=== PATIENT | female | born 1995 | race Caucasian/White ===

== ENCOUNTER 2017-03-28 03:42 | Inpatient (IN) | payer MEDICAID, OTHER ==
[~2017-03-28] VITALS: Ht 165.1 cm; Wt 85.1 kg
[2017-03-28 04:18] VITALS: Ht 165.1 cm; Wt 85.1 kg
[2017-03-28 04:19] VITALS: BP 120/69; PULSE 75; RESP 18
[2017-03-28] MEDS ORDERED: LACTATED RINGER'S 1,000 ML IV SCH (04:20)
[2017-03-28] MEDS ORDERED: CARBOPROST 250 MCG INJ IM PRN ×2 (04:30→17:00)
[2017-03-28] MEDS ORDERED: LIDOCAINE 1% (MPF) 30 ML INJ INJ PRN (04:30)
[2017-03-28] MEDS ORDERED: OXYTOCIN 30 UNITS/LR 500 ML IV SCH (04:30)
[2017-03-28] MEDS ORDERED: MISOPROSTOL 200 MCG TAB PR PRN ×2 (04:30→17:00)
[2017-03-28] MEDS ORDERED: LACTATED RINGER'S 1,000 ML IV PRN (04:30)
[2017-03-28] MEDS ORDERED: OXYTOCIN 30 UNITS/LR 500 ML IV PRN ×2 (04:30→17:00)
[2017-03-28] MEDS ORDERED: METHYLERGONOVINE 0.2 MG INJ IM PRN ×2 (04:30→17:00)
[2017-03-28] MEDS ORDERED: AMPICILLIN 2 GM/NS (PMX) 100 ML IV ONE (04:30)
[2017-03-28] MEDS ORDERED: IBUPROFEN 600 MG TAB PO PRN (04:30)
[2017-03-28 05:33] LABS: BASOPHIL # 0.1 10^3/ul (0.0-0.1); BASOPHILS % 0.5 % (0.0-2.0); EOSINOPHILS # 0.1 10^3/ul (0.0-0.5); EOSINOPHILS % 0.6 % (0.0-7.0); HEMOGLOBIN 10.1 g/dl (12.0-16.0); LYMPHOCYTES # 3.8 10^3/ul (0.8-2.9); LYMPHOCYTES % 31.5 % (15.0-51.0); MEAN CORPUSCULAR HEMOGLOBIN 26.1 pg (29.0-33.0); MEAN CORPUSCULAR HGB CONC 32.6 g/dl (32.0-37.0); MEAN CORPUSCULAR VOLUME 80.1 fl (82.0-101.0); MEAN PLATELET VOLUME 11.8 fl (7.4-10.4); MONOCYTES % 8.1 % (0.0-11.0); NEUTROPHIL # 7.1 10^3/ul (1.6-7.5); NEUTROPHILS % 58.8 % (39.0-77.0); PLATELET COUNT 263 10^3/UL (140-415); RED BLOOD COUNT 3.87 10^6/ul (4.20-5.40); RED CELL DISTRIBUTION WIDTH 14.1 % (11.5-14.5); WHITE BLOOD COUNT 12.1 10^3/ul (4.8-10.8)
[2017-03-28 05:43] LABS: INR 1.03; PROTIME 13.5 Sec (12.2-14.2); PT RATIO 1.1
[2017-03-28 05:44] LABS: PARTIAL THROMBOPLASTIN TIME 31.3 Sec (25.0-35.0)
[2017-03-28] MEDS: BUTORPHANOL 2 MG INJ IV PRN ×2 (06:25→08:53)
[2017-03-28] MEDS ORDERED: MINERAL OIL LIGHT 10 ML VIAL TOP ONE (08:00)
[2017-03-28] MEDS ORDERED: AMPICILLIN 1 GM/NS (PMX) 50 ML IV SCH (08:30)
[2017-03-28] MEDS: OXYTOCIN 30 UNITS/LR 500 ML IV SCH ×2 (08:53→14:04)
--- NOTE | 2017-03-28 09:09 | TRIAGE ---
OB Triage Datetime Report Generated by CPN: 03/28/2017 08:03 Datetime: 03/28/2017 07:00 Maternal Assessment Level of Consciousness: Fully Conscious DTR's/Clonus: DTRs 1+ Headache: Denies Blurred Vision: No Respiratory Effort: Unlabored Breath Sounds, Left: Clear and Equal Breath Sounds, Right: Clear and Equal Nausea/Vomiting: Denies RUQ Epigastric Pain: Denies Facial Edema: None Labor Evaluation Frequency: 4-7 Monitor Mode: External Duration (sec)2399: 30-40 Quality: Mild Pattern: Normal: <= 5 Contractions in 10 Minutes Resting Tone [place]: Relaxed Heart Rate FHR Baseline Rate: 125 Monitor Mode: External US Variability: Moderate 6-25 bpm Accelerations: 15X15 Decelerations: None Category: Category I Pain Assessment Pain Scale: 3 Pain Presence: Intermittent Pain Type: Contraction Pain Location: Back Pain Goal: 3 Pain Relief Measures: Comfort Measures Membrane Status: Ruptured Datetime: 03/28/2017 06:30 Assessment Type: Admission Assessment Vaginal Bleeding: None Maternal Assessment Level of Consciousness: Fully Conscious DTR's/Clonus: DTRs 2+; No Clonus Headache: Denies Blurred Vision: No Respiratory Effort: Unlabored; Regular Rhythm; Equal Expansion Breath Sounds, Left: Clear and Equal Breath Sounds, Right: Clear and Equal Nausea/Vomiting: Denies RUQ Epigastric Pain: Denies Lower Extremities Edema: None Degree: None Upper Extremities Edema: None Degree: None Facial Edema: None Fall Risk Assessment History of Falling: (0) No Secondary Diagnosis: (0) No Ambulatory Aid: (0) Bedrest/Nurse Assist IV Therapy: (0) No Gait: (0) Normal/Bedrest/Immobile Mental Status: (0) Oriented to Own Ability Fall Score: 0 Fall Risk Score Definition: No Risk: No action required Labor Evaluation Frequency: unabale to see toco adjusted Heart Rate FHR Baseline Rate: 130 Variability: Moderate 6-25 bpm Accelerations: 15X15 Decelerations: None Category: Category I Pain Assessment Pain Scale: 7 Pain Presence: Intermittent Pain Type: Contraction Pain Location: Back Pain Goal: 3 Vaginal Exam Dilatation (cms): 7.5 Effacement (%): 90 Station: -2 Membrane Status: Ruptured Membranes Ruptured Date/Time: 03/28/2017 02:00 Membranes Rupture Method: Spontaneous Amniotic Fluid Color: Clear Amniotic Fluid Amount: Large Amniotic Fluid Odor: None Datetime: 03/28/2017 06:00 Stage of : Labor Labor Evaluation Frequency: 1-5 Monitor Mode: External Duration (sec)2399: 40-60 Quality: Moderate Pattern: Normal: <= 5 Contractions in 10 Minutes Resting Tone [place]: Relaxed Heart Rate FHR Baseline Rate: 135 Monitor Mode: External US FHR Baseline Changes: No Baseline Change Variability: Moderate 6-25 bpm Accelerations: 15X15 Decelerations: None Category: Category I Datetime: 03/28/2017 05:43 Vaginal Exam Dilatation (cms): 5.0 Effacement (%): 80 Station: -2 Exam By: gstratton rn Datetime: 03/28/2017 05:00 Labor Evaluation Frequency: 1.5-4 Monitor Mode: External Duration (sec)2399: 40-60 Quality: Moderate Pattern: Normal: <= 5 Contractions in 10 Minutes Resting Tone [place]: Relaxed Heart Rate FHR Baseline Rate: 135 Monitor Mode: External US Variability: Moderate 6-25 bpm Accelerations: 15X15 Decelerations: None Category: Category I Datetime: 03/28/2017 04:15 Time of Arrival: 03/28/2017 06:17 EGA: 38.3 Arrived By: Wheelchair Arrived From: TRIAGE Presentation 'A': Cephalic Datetime: 03/28/2017 04:14 Time of Arrival: 03/28/2017 03:35 Arrived By: Wheelchair Arrived From: Home Chief Complaint: SROM @0220 Movement: Present Contractions: Regular Time Contractions Began: 03/28/2017 02:20 Rupture of Membranes: Ruptured Vaginal Bleeding: None Vaginal Discharge: Present Recent Sexual Intercouse: Denies Abdominal Trauma: Not Applicable Patient Complaints: Contractions; Cramping; Back Pain Time Provider Notified: 03/28/2017 04:15 Provider Notified: Initial Plan: EFM x2, Nitrazine Datetime: 03/28/2017 04:03 Stage of : OB Triage Vaginal Exam Dilatation (cms): 4.0 Effacement (%): 60 Station: -3 Exam By: GUILLERMINA Sahni Membrane Status: Ruptured Nitrazine: Positive Datetime: 03/28/2017 04:00 Labor Evaluation Frequency: 1-3 Monitor Mode: External Duration (sec)2399: 40-60 Quality: Moderate Pattern: Normal: <= 5 Contractions in 10 Minutes Resting Tone [place]: Relaxed Heart Rate FHR Baseline Rate: 130 Monitor Mode: External US Variability: Minimal - Undetectable to <=5 bpm Category: Category II Datetime: 03/28/2017 03:59 Stage of : OB Triage Membranes Ruptured Date/Time: 03/28/2017 03:59 Membranes Rupture Method: Spontaneous Amniotic Fluid Color: Clear Amniotic Fluid Amount: Large Amniotic Fluid Odor: Normal Vaginal Bleeding: None Datetime: 03/28/2017 03:54 Stage of : OB Triage Assessment Type: Triage Maternal Assessment Level of Consciousness: Fully Conscious DTR's/Clonus: DTRs 2+; No Clonus Headache: Frontal Blurred Vision: No Respiratory Effort: Unlabored; Regular Rhythm; Equal Expansion Breath Sounds, Left: Clear and Equal Breath Sounds, Right: Clear and Equal Nausea/Vomiting: Denies RUQ Epigastric Pain: Denies Lower Extremities Edema: None Degree: None Upper Extremities Edema: None Degree: None Facial Edema: None Temperature Route: Oral Fall Risk Assessment History of Falling: (0) No Secondary Diagnosis: (0) No Ambulatory Aid: (0) Bedrest/Nurse Assist IV Therapy: (0) No Gait: (0) Normal/Bedrest/Immobile Mental Status: (0) Oriented to Own Ability Fall Score: 0 Fall Risk Score Definition: No Risk: No action required Pain Assessment Pain Scale: 7 Pain Presence: Intermittent Pain Type: Cramping; Contraction Pain Location: Abdomen; Back Pain Relief Measures: Comfort Measures
--- NOTE | 2017-03-28 09:35 | HP ---
Date/Time of Note Date/Time of Note DATE: 03/28/17 TIME: 09:32 OB - History Hx of Present Free Text/Dictation 22-year-old female 2 para 1 at 38+ weeks admitted complaining of onset of labor pain and ruptured membrane after 2:00 a.m. Last Menstrual Period: Jul 02, 2016 Estimated Due Date: Apr 08, 2017 : 2 Para: 1 Care: Good Care Ultrasounds: Normal mid trimester US Obstetrical Complications: None Medical Complications: None Past Family/Social History * Past Medical, Surgical, Family and Obstetric Histories reviewed from chart. Blood Type: A- Rubella: immune RPR/VDRL: Negative GBS Status: Unknown HBsAG: Negative OB Admission Exam Vital Signs Vital Signs Vital Signs Date Time Temp Pulse Resp B/P Pulse Ox O2 Delivery O2 Flow Rate FiO2 03/28/17 04:19 98.1 75 18 120/69 Room Air Physical Exam HEENT: WNL Heart: Rhythm Normal Lungs: Clear, Equal Abdomen: WNL Extremities: Normal Reflexes: Normal Cervical Dilatation: 4cm Effacement: 50% Station: -2 Amniotic Fluid: Clear Heart Rate: 140's Accelerations: Accelerations Present Decelerations: No Decelerations Varibility: Moderate Contractions on Admission: < 5 Minutes Apart Date/Time Contractions Began: March 28, 2017 2 AM Frequency of Contractions: Every 5 minutes Duration: Over 40 -60 seconds Intensity: Moderate Last 72 hours Lab Results CBC & BMP 03/28/17 04:48 OB Assessment/Plan Reason for admission: active labor Other Assessment: Term gestation Continuous rupture of membrane Other plan: Proceed with apparent delivery JONATHAN ULLOA MD Mar 28, 2017 09:35
--- NOTE | 2017-03-28 09:37 | LDN ---
Date/Time of Note Date/Time of Note DATE: 03/28/17 TIME: 09:35 Delivery Summary Normal spontaneous vaginal delivery of a viable over intact perineum Weeks of Gestation 38 Placenta Delivered: Spontaneously, Intact & Complete Meconium: none Episiotomy: No Perineal laceration: 2 Laceration repair: Second-degree perineal laceration was repaired in layers in normal fashion using 2-0 Vicryl and 2-0 chromic stitches 2 times small vestibular lacerations were closed using 4-0 chromic Anesthesia type: Local Estimated blood loss: 300 Sponge & Needle done & correct: Yes All needle counts correct: Yes Any foreign bodies felt in the: No Problems: Delivery Information Sex Sex: male Apgars 1 Minute: 9 5 Minute: 9 Suctioning Nose & mouth suctioned at lydia: Yes Delee suction performed: No Umbilical Cord Umbilical cord with: 3 Vessels Cord presentations: no nuchal cord Cord Blood was obtained: Yes Mother & Baby Disposition Disposition Mom & Baby to Maternity; Good: Yes (Mother and baby were recovered in good condition) Mom transferred to: Other (Maternity) Baby to NICU: No JONATHAN ULLOA MD Mar 28, 2017 09:37
[2017-03-28 12:50] VITALS: BP 110/69; PULSE 60; RESP 19
[2017-03-28 16:30] VITALS: BP 119/75; PULSE 58; RESP 17
[2017-03-28 16:39] VITALS: BP 118/69; PULSE 68; RESP 17
[2017-03-28] MEDS ORDERED: LACTATED RINGER'S 1,000 ML IV* SCH (16:49)
[2017-03-28] MEDS ORDERED: BENZOCAINE 20% 56 ML SPRAY TOP PRN (17:00)
[2017-03-28] MEDS ORDERED: LANOLIN 7 GM TUBE TOP PRN (17:00)
[2017-03-28] MEDS ORDERED: DIBUCAINE 1% 30 GM OINT PR PRN (17:00)
[2017-03-28] MEDS ORDERED: ZOLPIDEM 5 MG TAB PO PRN (17:00)
[2017-03-28] MEDS ORDERED: HYDROCODONE/APAP (5/325) TAB PO PRN ×2 (17:00)
[2017-03-28] MEDS: IBUPROFEN 600 MG TAB PO SCH ×2 (17:39→23:54)
[2017-03-28] MEDS: WITCH HAZEL/GLYCERIN PAD PR PRN (17:40)
[2017-03-28 21:00] VITALS: BP 106/65; RESP 20
[2017-03-28] MEDS: MAGNESIUM HYDROXIDE 30ML CUP PO SCH (21:00)
[2017-03-28] MEDS: SENNA/DOCUSATE NA (8.6MG/50MG) TAB PO SCH (21:51)
[2017-03-29 04:15] VITALS: BP 91/55; PULSE 71; RESP 18
[2017-03-29] MEDS: IBUPROFEN 600 MG TAB PO SCH ×4 (05:28→23:56)
[2017-03-29 08:30] VITALS: BP 100/51; PULSE 66; RESP 19
[2017-03-29] MEDS: SENNA/DOCUSATE NA (8.6MG/50MG) TAB PO SCH ×2 (10:01→21:31)
[2017-03-29 11:28] LABS: HEMATOCRIT 26.2 % (37.0-47.0); HEMOGLOBIN 8.2 g/dl (12.0-16.0); LYMPHOCYTES % 32.2 % (15.0-51.0); MEAN CORPUSCULAR HEMOGLOBIN 26.1 pg (29.0-33.0); MEAN CORPUSCULAR HGB CONC 31.3 g/dl (32.0-37.0); MEAN CORPUSCULAR VOLUME 83.4 fl (82.0-101.0); MEAN PLATELET VOLUME 11.7 fl (7.4-10.4); NEUTROPHILS % 58.2 % (39.0-77.0); PLATELET COUNT 235 10^3/UL (140-415); RED BLOOD COUNT 3.14 10^6/ul (4.20-5.40); RED CELL DISTRIBUTION WIDTH 14.2 % (11.5-14.5); WHITE BLOOD COUNT 10.2 10^3/ul (4.8-10.8)
[2017-03-29 11:29] LABS: BASOPHILS % 0.3 % (0.0-2.0); EOSINOPHILS # 0.1 10^3/ul (0.0-0.5); EOSINOPHILS % 0.7 % (0.0-7.0); LYMPHOCYTES # 3.3 10^3/ul (0.8-2.9); MONOCYTE # 0.8 10^3/ul (0.3-0.9); MONOCYTES % 8.2 % (0.0-11.0)
[2017-03-29] MEDS: MAGNESIUM HYDROXIDE 30ML CUP PO SCH ×2 (11:33→21:00)
[2017-03-29 16:16] VITALS: BP 105/62; PULSE 67; RESP 19
--- NOTE | 2017-03-29 18:17 | DS ---
Date/Time of Note Date/Time of Note Home next day DATE: 03/29/17 TIME: 18:16 Obstetrical Discharge Record Final Diagnosis Final Diagnosis: Term delivered Other Final Diagnosis Status post vaginal delivery Vaginal Delivery Obstetrical Delivery: Spontaneous, Laceration, Repaired Condition on Discharge Physical Assessment Last Vitals: See nurse's notes Voiding: Yes Bowel Movement: Yes Breast: Soft, non-tender, Filling Fundus: Firm Abdomen and Incision: Soft bowel sounds are present Episiotomy: Not applicable Perineum is healing well Calf Tenderness: No Patient Condition: Good JONATHAN ULLOA MD Mar 29, 2017 18:17
--- NOTE | 2017-03-29 18:18 | PD.PPDC ---
[employer] Discharge Instruction Provider Information Physician Information 22-year-old female had vaginal delivery at 38+ weeks Diagnosis Final Diagnosis: Status post vaginal delivery Condition Patient Condition: Good Diet Diet: Resume Regular Diet Activity/Restrictions Activity: Normal Activity May Shower Restrictions: Nothing in the Vagina Return to Work or School: Apr 10, 2017 Follow-up Follow-up with Physician: 4, Week/Weeks (In clinic) Return to clinic for OB Instructions: Breast Tenderness Depression Comment: Pelvic rest 6 weeks JONATHAN ULLOA MD Mar 29, 2017 18:18
[2017-03-29] MEDS ORDERED: IBUP-1542 PO (18:19)
[2017-03-29 20:00] VITALS: BP 101/60; PULSE 74; RESP 18
[2017-03-30 04:00] VITALS: BP 106/57; PULSE 72; RESP 20
[2017-03-30] MEDS: IBUPROFEN 600 MG TAB PO SCH ×3 (06:01→18:00)
[2017-03-30 08:38] VITALS: BP 101/53; PULSE 63; RESP 16
[2017-03-30] MEDS ORDERED: VARICELLA VACCINE LIVE/PF 1,350 UNIT/0.5 ML ML SC* ONE (09:00)
[2017-03-30] MEDS ORDERED: DIPHTH/TET/ACEL PERTUSS (ADULT) 0.5 ML VIAL IM* ONE (09:00)
[2017-03-30] MEDS ORDERED: MEASLES,MUMPS,RUBELLA VACCINE INJ SC* ONE (09:00)
[2017-03-30] MEDS: MAGNESIUM HYDROXIDE 30ML CUP PO SCH ×2 (09:00→09:55)
[2017-03-30] MEDS: SENNA/DOCUSATE NA (8.6MG/50MG) TAB PO SCH (09:55)
[2017-03-30] MEDS ORDERED: INFLUENZA VIRUS VACCINE 0.5 ML SYG IM* ONE (13:56)
[2017-03-30 16:00] VITALS: BP 121/62; PULSE 91; RESP 18
[2017-03-30] MEDS: WITCH HAZEL/GLYCERIN PAD PR PRN (17:59)
== END 2017-03-30 21:05 | disposition home or self-care (01) | DRG 775 ==
LOC: L-D 03:42 → OBT 03:42 → L-D 04:10 → PP1 12:07
PROVIDERS: ADMIT Obstetrics & Gynecology; ATTEND Obstetrics & Gynecology
PROC: 10E0XZZ Delivery of Products of Conception, External Approach (ICD-10-PCS; principal; 2017-03-28)
PROC: 0KQM0ZZ Repair Perineum Muscle, Open Approach (ICD-10-PCS; 2017-03-28)
PROC: 3E033VJ Introduction of Other Hormone into Peripheral Vein, Percutaneous Approach (ICD-10-PCS; 2017-03-28)
DX: O70.1 Second degree perineal laceration during delivery (principal); Z37.0 Single live birth; Z3A.38 38 weeks gestation of pregnancy
CPT/HCPCS: 36415; 85025; 85610; 85730; 86592; 86850; 86885; 86900; 86901; 87340; 90686; 90715; 90716; G0463; J0290; J0595; J2590; J2790; J7120